=== PATIENT | female | born 1965 | race African-American/Black ===

== ENCOUNTER 2021-05-22 00:11 | Inpatient (IN) | payer OTHER, SELFPAY ==
[~2021-05-22] VITALS: Ht 162.6 cm; Wt 140.6 kg
[2021-05-22 00:11] VITALS: BP_SYST 92
[2021-05-22] MEDS ORDERED: DEXAMETHASONE SOD PHOSPHATE 4 MG/ML VIAL IVP ONE (02:00)
[2021-05-22] MEDS ORDERED: cefTRIAXone 1 GM IVPB PREMIX 50 ML IV ONE (02:00)
[2021-05-22] MEDS ORDERED: AZITHROMYCIN 250 MG TABLET PO ONE (02:00)
[2021-05-22 02:23] LABS: BASOPHILS # (AUTO) 0.1 K/uL (0.0-0.2); BASOPHILS % (AUTO) 0.8 % (0.0-2.0); EOSINOPHILS # (AUTO) 0.7 K/uL (0.0-0.4); EOSINOPHILS % (AUTO) 4.9 % (0.0-4.0); HEMATOCRIT 34.7 % (36-48); HEMOGLOBIN 11.5 g/dL (12.0-16.0); LYMPHOCYTES # (AUTO) 1.2 K/uL (1.0-5.5); LYMPHOCYTES % (AUTO) 8.3 % (20.5-51.5); MEAN CORPUSCULAR HEMOGLOBIN 31 pg (27-31); MEAN CORPUSCULAR HGB CONC 33 % (32-36); MEAN CORPUSCULAR VOLUME 94 fL (79.0-98.0); MONOCYTES # (AUTO) 2.3 K/uL (0.0-1.0); MONOCYTES % (AUTO) 15.6 % (1.7-9.3); NEUTROPHILS # (AUTO) 10.3 K/uL (1.8-7.7); NEUTROPHILS % (AUTO) 70.4 % (40.0-70.0); PLATELET COUNT (AUTO) 591 K/uL (130-430); RED BLOOD CELL COUNT(AUTO) 3.69 MIL/uL (4.2-6.2); RED CELL DISTRIBUTION WIDTH 14.8 % (9.0-15.0); WHITE BLOOD COUNT (AUTO) 14.7 K/uL (4.8-10.8)
[2021-05-22 02:28] LABS: CALCIUM 9.2 mg/dL (8.4-11.0); CREATININE 1.64 mg/dL (0.55-1.30); POTASSIUM 3.2 mmol/L (3.5-5.1)
[2021-05-22 02:36] LABS: ALBUMIN 2.4 g/dL (3.4-4.8); TOTAL BILIRUBIN 1.1 mg/dL (0.0-1.0)
[2021-05-22 02:53] LABS: PROTHROMBIN TIME 10.9 SECS (9.5-12.5)
--- NOTE | 2021-05-22 03:27 | NUR ---
Patient to ER bed 7 to gown for evaluation. Side rails up. Report given to Carlos A.
[2021-05-22] MEDS ORDERED: NACL 0.9% 1,000 ML IV ONE (03:45)
[2021-05-22] MEDS ORDERED: NOREPINEPHRINE BITARTRATE 4 MG in NS 246 ML IV ONE (03:45)
--- NOTE | 2021-05-22 03:50 | NUR ---
Pt with SpO2 83% on 2L/NC, pt placed on 6L/NC with improvment to 93%.
--- NOTE | 2021-05-22 04:00 | NUR ---
Pt BIB BLS c/o sob, cough, and congestion X 4 days. Patient covid + 05/07/21 asymptomatic until today.
--- NOTE | 2021-05-22 04:15 | NUR ---
Dr. Hawley at bedside for MSE.
[2021-05-22 04:44] LABS: BILIRUBIN,URINE 1+ (NEGATIVE); BLOOD, URINE NEGATIVE (NEGATIVE); CLARITY/URINE CLEAR (CLEAR); COLOR,URINE YELLOW (YELLOW); GLUCOSE,URINE TRACE (NEGATIVE); KETONES,URINE TRACE (NEGATIVE); LEUKOCYTE ESTERASE ,URINE NEGATIVE (NEGATIVE); NITRITE, URINE NEGATIVE (NEGATIVE); PH,URINE 5.5 (5.0-8.0); PROTEIN URINE NEGATIVE (NEGATIVE)
[2021-05-22] MEDS ORDERED: ENOXAPARIN SODIUM 40 MG/0.4 ML SYRINGE SUBCUT ONE (05:15)
[2021-05-22] MEDS ORDERED: ENOXAPARIN SODIUM 100 MG/ML SYRINGE SUBCUT ONE (05:15)
--- NOTE | 2021-05-22 05:20 | NUR ---
Patient resting quietly. No acute distress noted.
--- NOTE | 2021-05-22 06:00 | NUR ---
Patient will be admitted to care of DR. KEY. Admitted to ICU. Belongings list completed. Complete and up to date summary report printed. SBAR report to be given at bedside with opportunity for questions.
--- NOTE | 2021-05-22 06:20 | NUR ---
Patient's code status is FULL CODE paperwork completed and placed in chart.
--- NOTE | 2021-05-22 06:50 | NUR ---
Pt using BSC. SpO2 90% 6L/NC. Placed on simple mask.
--- NOTE | 2021-05-22 07:08 | NUR ---
Report given to La LANCE
--- NOTE | 2021-05-22 07:10 | NUR ---
REPORT RECEIVED FROM JANES LANCE. PT ARRIVED FROM HOME VIA ACLS W/ C/O INCREASING SOB. PT'S O2 SAT WAS 83% ON RA. PT IS CURRENTLY ON A SIMPLE FACE MASK, 8L, CURRENT O2 SAT IS 95%. PT IS AAOX4. VSS AT THE MOMENT
[2021-05-22] MEDS ORDERED: BENZ-16 PO (07:54)
[2021-05-22] MEDS ORDERED: COLC0.6T67 PO (07:54)
[2021-05-22] MEDS ORDERED: PRED10TA PO (07:54)
--- NOTE | 2021-05-22 07:54 | NUR ---
Medication reconciliation completed with information provided by PT. Any prior medication reconciliation on file was reviewed and corrected.
--- NOTE | 2021-05-22 08:08 | NUR ---
PCR COVID AND MRSA COLLECTED AND SENT TO THE LAB
[2021-05-22] MEDS ORDERED: LOPERAMIDE HCL 2 MG CAPSULE PO PRN (10:45)
[2021-05-22] MEDS ORDERED: POTASSIUM CHLORIDE 40 MEQ in NS 250 ML IV ONE (10:45)
[2021-05-22] MEDS ORDERED: KCL 20 mEq in 100 mL (PREMIX) 200 ML IV ONE (10:58)
--- NOTE | 2021-05-22 12:00 | NUR ---
k-rider currently infusing per md order
--- NOTE | 2021-05-22 17:00 | NUR ---
Pt transfered to hospital bed
--- NOTE | 2021-05-22 17:17 | NUR ---
Called dietary to request dinner tray for patient
[2021-05-22] MEDS ORDERED: D5/0.45 NS 1,000 ML IV SCH (17:45)
[2021-05-22] MEDS ORDERED: LORazepam 2 MG/ML VIAL IVP PRN (17:45)
[2021-05-22] MEDS ORDERED: ONDANSETRON HCL 4 MG/2 ML VIAL IVP PRN (17:45)
[2021-05-22] MEDS ORDERED: *LOVENOX 1MG/KG Q24H/PHARMACY XX ONE (17:45)
--- NOTE | 2021-05-22 18:55 | NUR ---
Dr. Davis at the bedside
[2021-05-22 18:59] VITALS: BP_SYST 114
[2021-05-22] MEDS: ALBUTEROL SULFATE 0.083% 2.5 MG/3 ML VIAL.NEB INH SCH ×2 (19:00→23:00)
[2021-05-22] MEDS: IPRATROPIUM BROM 0.5 MG/2.5 ML VIAL.NEB (ATROVENT) INH SCH ×2 (19:00→23:00)
--- NOTE | 2021-05-22 19:00 | NUR ---
current accu check is 264, covered w/ 4 units of regular insulin
[2021-05-22] MEDS: DEXAMETHASONE SOD PHOSPHATE 10 MG/ML VIAL IVP SCH (19:05)
[2021-05-22] MEDS: INSULIN REGULAR, HUMAN 100 UNITS/ML, 10 ML VIAL (humuLIN R) SUBCUT PRN (19:07)
[2021-05-22] MEDS ORDERED: INSULIN REGULAR, HUMAN 10 UNITS/0.1 ML INJ ONE (19:12)
[2021-05-22] MEDS ORDERED: *LOVENOX 1MG/KG Q12H/PHARMACY XX ONE (19:15)
--- NOTE | 2021-05-22 19:28 | NUR ---
report given to Chula LANCE. Pt is currently awake and resting in bed
--- NOTE | 2021-05-22 23:00 | NUR ---
Patient resting quietly. No acute distress noted. Vital signs within normal range.
[2021-05-23] MEDS ORDERED: CEFEPIME 1 GM/VIAL (MAXIPIME) ONE ×2 (01:39→09:42)
[2021-05-23] MEDS: CEFEPIME 0.5 GM in D5W 50 ML IV SCH ×3 (01:46→20:26)
[2021-05-23] MEDS: INSULIN REGULAR, HUMAN 100 UNITS/ML, 10 ML VIAL (humuLIN R) SUBCUT PRN ×3 (01:47→17:57)
[2021-05-23] MEDS ORDERED: AZITHROMYCIN 500 MG/VIAL (ZITHROMAX) IV ONE (01:53)
--- NOTE | 2021-05-23 02:00 | NUR ---
Patient resting quietly. No acute distress noted. Vital signs within normal range.
[2021-05-23] MEDS: AZITHROMYCIN 500 MG in NS 250 ML IV SCH (02:09)
[2021-05-23] MEDS: IPRATROPIUM BROM 0.5 MG/2.5 ML VIAL.NEB (ATROVENT) INH SCH ×4 (03:00→15:00)
[2021-05-23] MEDS: ALBUTEROL SULFATE 0.083% 2.5 MG/3 ML VIAL.NEB INH SCH ×4 (03:00→15:00)
--- NOTE | 2021-05-23 04:00 | NUR ---
MEDICATION ADMINISTERED ORDERED.
[2021-05-23 06:27] LABS: BASOPHILS % (AUTO) 0.2 % (0.0-2.0); HEMATOCRIT 33.2 % (36-48); HEMOGLOBIN 11.3 g/dL (12.0-16.0); LYMPHOCYTES # (AUTO) 1.3 K/uL (1.0-5.5); LYMPHOCYTES % (AUTO) 7.2 % (20.5-51.5); MEAN CORPUSCULAR HEMOGLOBIN 32 pg (27-31); MEAN CORPUSCULAR HGB CONC 34 % (32-36); MEAN CORPUSCULAR VOLUME 93 fL (79.0-98.0); MONOCYTES # (AUTO) 1.3 K/uL (0.0-1.0); MONOCYTES % (AUTO) 7.6 % (1.7-9.3); PLATELET COUNT (AUTO) 533 K/uL (130-430); RED BLOOD CELL COUNT(AUTO) 3.57 MIL/uL (4.2-6.2); WHITE BLOOD COUNT (AUTO) 17.6 K/uL (4.8-10.8)
[2021-05-23 06:40] LABS: C-REACTIVE PROTEIN QUANT 28.4 mg/dL (0-0.5); CALCIUM 9.2 mg/dL (8.4-11.0); CREATININE 1.34 mg/dL (0.55-1.30); PHOSPHORUS 3.6 mg/dL (2.7-4.5); POTASSIUM 3.9 mmol/L (3.5-5.1)
[2021-05-23] MEDS ORDERED: ENOXAPARIN SODIUM 60 MG/0.6 ML SYRINGE ONE (06:44)
[2021-05-23] MEDS: ENOXAPARIN SODIUM 40 MG/0.4 ML SYRINGE SUBCUT SCH (06:59)
[2021-05-23] MEDS: ENOXAPARIN SODIUM 100 MG/ML SYRINGE SUBCUT SCH (06:59)
--- NOTE | 2021-05-23 07:13 | NUR ---
REPORT GIVEN TO NATALIO MUNOZ TO ASSUME CARE.
--- NOTE | 2021-05-23 07:17 | NUR ---
REPORT RECEIVED FROM NATALIO LEAL
--- NOTE | 2021-05-23 08:03 | NUR ---
PT PLACED ON 4LNC, O2 SAT 93-95%, TOLERATING WELL
--- NOTE | 2021-05-23 08:15 | NUR ---
PT 02 SAT 92% UP NC TO 6L, 02 SAT 94-95%, PT TOLERATING WELL
--- NOTE | 2021-05-23 08:50 | NUR ---
DR. VIERA ORDERS TO DOWNGRADE TO TELE
[2021-05-23] MEDS: D5NS 1,000 ML IV SCH ×3 (09:00→23:34)
--- NOTE | 2021-05-23 11:10 | NUR ---
PT SLEEPING IN BED, NO DISTRESS NOTED, V/S STABLE
[2021-05-23 12:18] LABS: ERYTHROCYTE SEDIMENTATION RATE 96 MM/HR (0-20)
--- NOTE | 2021-05-23 12:23 | NUR ---
ULTRASOUND AT THE BEDSIDE
--- NOTE | 2021-05-23 14:12 | NUR ---
PT SLEEPING IN BED, NO DISTRESS, V/S STABLE
--- NOTE | 2021-05-23 14:53 | NUR ---
Patient will be admitted to care of DR. KEY. Admitted to TELE unit. Will go to room 120A. Belongings list completed. Complete and up to date summary report printed. SBAR report to be given at bedside with opportunity for questions.
[2021-05-23 16:00] VITALS: BP_SYST 121
--- NOTE | 2021-05-23 16:00 | NUR ---
admission: pt received form e.r. under dr yohan kimbrough dx of sepsis, covid pna. pt educated on the use of call light , tv and bed controls.
--- NOTE | 2021-05-23 16:41 | NUR ---
CONSULTATION PAGED/CALLED Reason for Consultation: [] QUENTIN Person Who was Notified: [] DR KOVACS Consulting Physician: [] DR KOVACS Racing Mechanic Specialty: [] NEPHRO Ordering Physician: [] DR KEY
--- NOTE | 2021-05-23 16:45 | NUR ---
MAINSPRING STRIP INSPECTOR DR CEE IS AWARE OF THE CONSULT FOR [email or web address] PNA.
--- NOTE | 2021-05-23 16:45 | NUR ---
CONSULTATION PAGED/CALLED Reason for Consultation: [] COVID PNA Person Who was Notified: [] JULISA Consulting Physician: [] DR PIÑA -- DR MANJARREZ KENNEL ATTENDANT Maintenance And Repair Worker Specialty: [] ID Ordering Physician: [] DR KEY
[2021-05-23] MEDS: DEXAMETHASONE SOD PHOSPHATE 10 MG/ML VIAL IVP SCH (17:58)
--- NOTE | 2021-05-23 18:00 | NUR ---
PT AMBULATED TO BATHROOM, DESATED TO 87 % ON ROOM AIR, GOES BACK TO 96% ON 6LI PER NC. WILL CONT TO MONITOR.
[2021-05-23 20:00] VITALS: BP_SYST 106
--- NOTE | 2021-05-23 23:54 | NUR ---
Pagezena HOUSTON Pt BS is 427, 12 units Reg insulin administered per protocol and paged Dr. Tabby Gutierrez. Pt is also on D5NS @100. Awaiting callback.
[2021-05-24] VITALS: BP_SYST 109
[2021-05-24] MEDS: INSULIN REGULAR, HUMAN 100 UNITS/ML, 10 ML VIAL (humuLIN R) SUBCUT PRN ×4 (00:11→17:39)
--- NOTE | 2021-05-24 01:17 | NUR ---
called back Rec'd call from Dr. Tabby Gutierrez, informed of elevated BS 427 and order rec'd for 10 units Regular and to change IVF to NS @ 100. Will carry out.
--- NOTE | 2021-05-24 01:18 | NUR ---
HIGH ALERT NOTE: Called back Dr. Tabby Gutierrez at [phone] identified within the medical roster to verify physician authenticity. Regular insulin 10units.
[2021-05-24] MEDS ORDERED: INSULIN REGULAR, HUMAN 100 UNITS/ML, 10 ML VIAL SUBCUT ONE (02:00)
[2021-05-24] MEDS: AZITHROMYCIN 500 MG in NS 250 ML IV SCH (02:05)
[2021-05-24] MEDS: NACL 0.9% 1,000 ML IV SCH ×2 (02:10→17:44)
--- NOTE | 2021-05-24 03:10 | NUR ---
IV Restart IV got pulled out L. AC, catheter tip intact no bleeding noted. # 22 gauge angiocath placed to L. hand 22G. Good blood return. Pt tolerated well. IV abx administered.
[2021-05-24] MEDS: ENOXAPARIN SODIUM 40 MG/0.4 ML SYRINGE SUBCUT SCH (06:00)
[2021-05-24] MEDS: ENOXAPARIN SODIUM 100 MG/ML SYRINGE SUBCUT SCH (06:01)
--- NOTE | 2021-05-24 06:03 | NUR ---
Closing notes Pt asleep, easily awakens. No s/s distress noted. BS checked 212, 4 units Reg insulin given per protocol. Lovenox injection SQ given as scheduled. IVF infusing at ordered rate L. hand 22G clear and patent. Call light within reach. Bed low, locked, siderails up x2. Droplet isolation maintained pending Covid PCR. To endorse to AM nurse.
[2021-05-24] MEDS: ALBUTEROL SULFATE 0.083% 2.5 MG/3 ML VIAL.NEB INH SCH ×5 (07:00→23:00)
[2021-05-24] MEDS: IPRATROPIUM BROM 0.5 MG/2.5 ML VIAL.NEB (ATROVENT) INH SCH ×5 (07:00→23:00)
--- NOTE | 2021-05-24 07:40 | NUR ---
OPENING NOTES PATIENT AAOX 4. LUNGS BILATERALLY CLEAR. HAS OXYGEN OF 6 LITERS VIA NC. ABDOMEN SOFT AND NON DISTENDED. HAS IV ACCESS ON THE LEFT HAND #22. WITH NORMAL SALINE AT 100CC/HR INFUSING ON WELL. CALL LIGHTS WITHIN REACH. BED LOW POSITION, ALARME AND LOCKED.
[2021-05-24 08:06] VITALS: BP_SYST 114
[2021-05-24 08:06] LABS: BASOPHILS # (AUTO) 0.1 K/uL (0.0-0.2); BASOPHILS % (AUTO) 0.5 % (0.0-2.0); EOSINOPHILS % (AUTO) 0.3 % (0.0-4.0); HEMATOCRIT 31.7 % (36-48); HEMOGLOBIN 10.7 g/dL (12.0-16.0); LYMPHOCYTES % (AUTO) 6.4 % (20.5-51.5); MEAN CORPUSCULAR HEMOGLOBIN 31 pg (27-31); MEAN CORPUSCULAR HGB CONC 34 % (32-36); MEAN CORPUSCULAR VOLUME 93 fL (79.0-98.0); MONOCYTES # (AUTO) 1.5 K/uL (0.0-1.0); NEUTROPHILS # (AUTO) 12.5 K/uL (1.8-7.7); NEUTROPHILS % (AUTO) 82.8 % (40.0-70.0); PLATELET COUNT (AUTO) 472 K/uL (130-430); RED BLOOD CELL COUNT(AUTO) 3.42 MIL/uL (4.2-6.2); RED CELL DISTRIBUTION WIDTH 15.4 % (9.0-15.0); WHITE BLOOD COUNT (AUTO) 15.1 K/uL (4.8-10.8)
[2021-05-24 10:02] LABS: CALCIUM 9.5 mg/dL (8.4-11.0); CREATININE 1.11 mg/dL (0.55-1.30); PHOSPHORUS 3.8 mg/dL (2.7-4.5); POTASSIUM 3.8 mmol/L (3.5-5.1)
[2021-05-24] MEDS: CEFEPIME 0.5 GM in D5W 50 ML IV SCH ×2 (10:05→19:59)
[2021-05-24 10:35] LABS: C-REACTIVE PROTEIN QUANT 7.3 mg/dL (0-0.5)
[2021-05-24 12:05] VITALS: BP_SYST 103
[2021-05-24 14:22] LABS: ERYTHROCYTE SEDIMENTATION RATE 97 MM/HR (0-20)
[2021-05-24 16:13] VITALS: BP_SYST 125
[2021-05-24] MEDS: DEXAMETHASONE SOD PHOSPHATE 10 MG/ML VIAL IVP SCH (17:31)
--- NOTE | 2021-05-24 18:36 | NUR ---
CLOSING NOTES PATIENT ALERT AWAKE X 4. NO S/S OF SYMPTOMS OF DISTRESS NOTED. LATEST BS 189 MG/DL. COVERAGE GIVEN. WISH TO GO TO THE BATHROOM LATER. CALL LIGHTS WITHIN REACH. BED LOW POSITION, ALARMED AND LOCKED. ENDORSED TO INCOMING NURSE.
--- NOTE | 2021-05-24 18:44 | NUR ---
Dietitian Recommendations * Recommend [facility] high carb-75 gm, 100 gm protein diet * Double portions of protein and non-starchy vegetables TID * Consider zinc/VIT C/VIT D3 COVID supplement protocol LP, RD Please refer to Nutrition Assessment for details. Addendum: 05/24/21 at [address] Amended: Links added.
[2021-05-24 20:00] VITALS: BP_SYST 141
--- NOTE | 2021-05-24 22:40 | NUR ---
Rounds/CT consent Pt states she wants to speak with Pulmo doctor first before she signs consent.
[2021-05-25 00:36] VITALS: BP_SYST 136
--- NOTE | 2021-05-25 01:00 | NUR ---
Rounds/BS check Pt asleep, easily awakens, VSS. BS checked 312, 8 units Regular insulin administered per protocol. IVF/IV abx infusing at ordered rate L. hand clear and patent. Call light within reach. To monitor.
[2021-05-25] MEDS: AZITHROMYCIN 500 MG in NS 250 ML IV SCH (01:10)
[2021-05-25] MEDS: INSULIN REGULAR, HUMAN 100 UNITS/ML, 10 ML VIAL (humuLIN R) SUBCUT PRN ×5 (01:16→23:45)
[2021-05-25] MEDS: NACL 0.9% 1,000 ML IV SCH ×4 (01:20→20:38)
[2021-05-25] MEDS: ALBUTEROL SULFATE 0.083% 2.5 MG/3 ML VIAL.NEB INH SCH ×2 (03:00→07:00)
[2021-05-25] MEDS: IPRATROPIUM BROM 0.5 MG/2.5 ML VIAL.NEB (ATROVENT) INH SCH ×2 (03:00→07:00)
[2021-05-25] MEDS: ENOXAPARIN SODIUM 100 MG/ML SYRINGE SUBCUT SCH ×2 (06:15→20:35)
[2021-05-25] MEDS: ENOXAPARIN SODIUM 40 MG/0.4 ML SYRINGE SUBCUT SCH ×2 (06:15→20:34)
--- NOTE | 2021-05-25 06:19 | NUR ---
Closing notes Pt awake alert, no s/s distress noted. BS checked 213, 4 units Reg insulin given per protocol. Lovenox injection SQ given as scheduled. IVF infusing at ordered rate L. hand 22G clear and patent. Call light within reach. Bed low, locked, siderails up x2. Droplet isolation maintained pending Covid PCR. To endorse to AM nurse.
[2021-05-25 07:18] LABS: BASOPHILS % (AUTO) 0.3 % (0.0-2.0); EOSINOPHILS # (AUTO) 0.1 K/uL (0.0-0.4); EOSINOPHILS % (AUTO) 1.3 % (0.0-4.0); HEMATOCRIT 32.9 % (36-48); HEMOGLOBIN 11.1 g/dL (12.0-16.0); LYMPHOCYTES % (AUTO) 9.2 % (20.5-51.5); MEAN CORPUSCULAR HEMOGLOBIN 32 pg (27-31); MEAN CORPUSCULAR HGB CONC 34 % (32-36); MEAN CORPUSCULAR VOLUME 93 fL (79.0-98.0); MONOCYTES # (AUTO) 1.2 K/uL (0.0-1.0); MONOCYTES % (AUTO) 10.9 % (1.7-9.3); NEUTROPHILS # (AUTO) 8.6 K/uL (1.8-7.7); NEUTROPHILS % (AUTO) 78.3 % (40.0-70.0); PLATELET COUNT (AUTO) 439 K/uL (130-430); RED BLOOD CELL COUNT(AUTO) 3.53 MIL/uL (4.2-6.2); RED CELL DISTRIBUTION WIDTH 14.8 % (9.0-15.0)
--- NOTE | 2021-05-25 07:30 | NUR ---
patient in bed, no s/s of distress, tolerating care, a/ox4, bed in lowest locked position, call light within reach, iv in l hand intact patent, will continue to monitor.
[2021-05-25 08:16] LABS: ALBUMIN 2.4 g/dL (3.4-4.8); C-REACTIVE PROTEIN QUANT 4.5 mg/dL (0-0.5); CALCIUM 9.2 mg/dL (8.4-11.0); CREATININE 0.94 mg/dL (0.55-1.30); POTASSIUM 3.8 mmol/L (3.5-5.1); TOTAL BILIRUBIN 0.5 mg/dL (0.0-1.0)
[2021-05-25] MEDS: CEFEPIME 0.5 GM in D5W 50 ML IV SCH ×2 (08:32→20:33)
[2021-05-25 10:54] LABS: ERYTHROCYTE SEDIMENTATION RATE 91 MM/HR (0-20)
[2021-05-25 11:32] VITALS: BP_SYST 125
[2021-05-25] MEDS ORDERED: ALBUTEROL MDI INHALATION 8 GM INH INH PRN (12:45)
[2021-05-25] MEDS ORDERED: ALBUTEROL MDI INHALATION 8 GM INH INH SCH (13:00)
[2021-05-25] MEDS ORDERED: IOHEXOL 350 mgI/mL, 150 ML INFUS..BTL IV ONE (15:11)
[2021-05-25 15:32] VITALS: BP_SYST 125
[2021-05-25 17:06] VITALS: BP_SYST 125
--- NOTE | 2021-05-25 17:11 | NUR ---
RECEIVED REPORT THAT CT ANGIOGRAM OF THE CHEST WAS POSITIVE FOR PULMONARY EMBOLISM, CALLED DR Olimpia KEY AND NOTIFIED OF THE RESULTS, HE ORDERED LOVENOX PER PHARMACY DOSING.
[2021-05-25] MEDS: DEXAMETHASONE SOD PHOSPHATE 10 MG/ML VIAL IVP SCH (18:41)
--- NOTE | 2021-05-25 19:30 | NUR ---
patient in bed, no s/s of distress, tolerating care, a/ox4, bed in lowest locked position, call light within reach, iv in l hand and 20g left AC intact patent, endorsed to pulp mill team leader.
[2021-05-25 20:31] VITALS: BP_SYST 140
--- NOTE | 2021-05-25 20:35 | NUR ---
MED PASS PATIENT DUE MEDICATIONS GIVEN. VITAL SIGNS STABLE. NO C/O PAIN. TOLERATING 02 @6L NC. 02 SAT 96%.
[2021-05-25] MEDS ORDERED: *LOVENOX 1MG/KG Q12H/PHARMACY XX SCH (21:00)
[2021-05-25 23:45] VITALS: BP_SYST 119
--- NOTE | 2021-05-25 23:45 | NUR ---
BLOOD SUGAR ROUTINE FINGER STICK SUGAR 325. COVERED WITH 8 UNITS REGULAR INSULIN PER SLIDING SCALE ORDER. VITAL SIGNS STABLE.
[2021-05-26] MEDS: AZITHROMYCIN 500 MG in NS 250 ML IV SCH (02:14)
--- NOTE | 2021-05-26 02:14 | NUR ---
ATB PATIENT DUE ANTIBIOTIC INFUSING. IV LINE INTACT AND PATENT.
--- NOTE | 2021-05-26 04:00 | NUR ---
ROUNDS PATIENT RESTING IN BED. BREATHING UNLABORED. CALL LIGHT WITH IN REACH.
[2021-05-26] MEDS: INSULIN REGULAR, HUMAN 100 UNITS/ML, 10 ML VIAL (humuLIN R) SUBCUT PRN ×3 (06:00→23:40)
--- NOTE | 2021-05-26 06:34 | NUR ---
CLOSING NOTES NO CHANGE IN PATIENT CONDITION. PATIENT NEEDS ATTENDED. BED IN LOWEST LOCKED POSITION. CALL LIGHT WITH IN REACH.
[2021-05-26] MEDS: ALBUTEROL SULFATE 0.083% 2.5 MG/3 ML VIAL.NEB INH SCH ×4 (07:00→19:00)
--- NOTE | 2021-05-26 07:40 | NUR ---
Opening note Received report from night nurse. Patient is alert and oriented X4. on 2 L nasal cannula and tolerating well with no signs of shortness of breath noted. IV is patent, infusing fluids as ordered. Safety, contact and airborne precautions in place. Bed locked and in lowest position. Call light within reach. Will continue to monitor.
[2021-05-26 07:50] LABS: CALCIUM 8.6 mg/dL (8.4-11.0); CREATININE 0.85 mg/dL (0.55-1.30); POTASSIUM 4.1 mmol/L (3.5-5.1)
[2021-05-26 08:00] VITALS: BP_SYST 122
[2021-05-26 08:01] LABS: BASOPHILS % (AUTO) 0.4 % (0.0-2.0); EOSINOPHILS # (AUTO) 0.1 K/uL (0.0-0.4); EOSINOPHILS % (AUTO) 1.1 % (0.0-4.0); HEMATOCRIT 31.3 % (36-48); HEMOGLOBIN 10.5 g/dL (12.0-16.0); LYMPHOCYTES # (AUTO) 1.1 K/uL (1.0-5.5); LYMPHOCYTES % (AUTO) 9.4 % (20.5-51.5); MEAN CORPUSCULAR HEMOGLOBIN 31 pg (27-31); MEAN CORPUSCULAR HGB CONC 33 % (32-36); MEAN CORPUSCULAR VOLUME 93 fL (79.0-98.0); MONOCYTES # (AUTO) 1.1 K/uL (0.0-1.0); NEUTROPHILS # (AUTO) 9.8 K/uL (1.8-7.7); NEUTROPHILS % (AUTO) 80.1 % (40.0-70.0); PLATELET COUNT (AUTO) 391 K/uL (130-430); RED BLOOD CELL COUNT(AUTO) 3.37 MIL/uL (4.2-6.2); RED CELL DISTRIBUTION WIDTH 14.8 % (9.0-15.0); WHITE BLOOD COUNT (AUTO) 12.2 K/uL (4.8-10.8)
[2021-05-26] MEDS: CEFEPIME 0.5 GM in D5W 50 ML IV SCH ×2 (08:09→23:18)
[2021-05-26] MEDS: ENOXAPARIN SODIUM 100 MG/ML SYRINGE SUBCUT SCH ×2 (08:10→23:13)
[2021-05-26] MEDS: ENOXAPARIN SODIUM 40 MG/0.4 ML SYRINGE SUBCUT SCH ×2 (12:07→23:14)
[2021-05-26 12:11] VITALS: BP_SYST 110
--- NOTE | 2021-05-26 12:17 | NUR ---
RN note Patient resting in bed. RT titrated patient to room air. O2 sat at 91%. Blood sugar 152, 2 units of regular insulin given. Vitals are stable. Will monitor.
[2021-05-26 12:20] LABS: ERYTHROCYTE SEDIMENTATION RATE 90 MM/HR (0-20)
[2021-05-26] MEDS: NACL 0.9% 1,000 ML IV SCH ×2 (14:00→23:13)
[2021-05-26 16:06] VITALS: BP_SYST 127
[2021-05-26] MEDS: DEXAMETHASONE SOD PHOSPHATE 10 MG/ML VIAL IVP SCH (17:33)
--- NOTE | 2021-05-26 18:31 | NUR ---
Closing note Patient is resting in bed. on 2 L nasal cannula and tolerating well with no signs of shortness of breath noted. IV is patent, infusing fluids as ordered. Safety, contact and airborne precautions remain in place. Bed locked and in lowest position. Call light within reach. Will endorse to night nurse.
[2021-05-26 19:30] VITALS: BP_SYST 124
--- NOTE | 2021-05-26 19:30 | NUR ---
OPENING NOTE PATIENT IS AWAKE ALERT ORIENTED X4 NO SIGNS OF PAIN OR DISTRESS. BREATHING OXYGEN VIA N/C AT 2 LPM NO RESPIRATORY DISTRESS. IV SITE PATENT INTACT ON LAC AND LH. BED IS LOW AND CALL LIGHT IN REACH.
[2021-05-26 20:00] VITALS: BP_SYST 125
--- NOTE | 2021-05-27 | NUR ---
PATIENT IS AWAKE COMFORTABLE IN BED NO SIGNS OF PAIN OR DISTRESS. BED IS LOW AND CALL LIGHT IN REACH.
[2021-05-27] MEDS: AZITHROMYCIN 500 MG in NS 250 ML IV SCH (03:24)
--- NOTE | 2021-05-27 04:29 | NUR ---
PATIENT IS RESTING IN BED NO SIGNS OF ACUTE DISTRESS OR PAIN. BED LOW AND CALL LIGHT IN REACH.
[2021-05-27] MEDS: INSULIN REGULAR, HUMAN 100 UNITS/ML, 10 ML VIAL (humuLIN R) SUBCUT PRN ×3 (05:29→17:08)
--- NOTE | 2021-05-27 06:21 | NUR ---
CLOSING NOTE PATIENT IS RESTING WAKES UP TO TOUCH AND VOCAL STIMULI. ALERT ORIENTED X4. BREATHING OXYGEN 2 LPM BY N/C NO SIGNS OF RESPIRATORY DISTRESS OR PAIN. IV SITES PATENT INTACT IN LAC AND LH INFUSING IV FLUIDS. BED IS LOW AND CALL LIGHT IS WITHIN REACH. WILL ENDORSE TO NEXT NURSE PATIENT PENDING PCR TEST.
[2021-05-27 07:34] LABS: BASOPHILS # (AUTO) 0.1 K/uL (0.0-0.2); BASOPHILS % (AUTO) 0.4 % (0.0-2.0); EOSINOPHILS # (AUTO) 0.1 K/uL (0.0-0.4); EOSINOPHILS % (AUTO) 0.5 % (0.0-4.0); HEMATOCRIT 34.4 % (36-48); HEMOGLOBIN 11.4 g/dL (12.0-16.0); LYMPHOCYTES # (AUTO) 1.4 K/uL (1.0-5.5); LYMPHOCYTES % (AUTO) 9.1 % (20.5-51.5); MEAN CORPUSCULAR HEMOGLOBIN 31 pg (27-31); MEAN CORPUSCULAR HGB CONC 33 % (32-36); MEAN CORPUSCULAR VOLUME 93 fL (79.0-98.0); MONOCYTES # (AUTO) 1.3 K/uL (0.0-1.0); MONOCYTES % (AUTO) 8.9 % (1.7-9.3); NEUTROPHILS # (AUTO) 12.1 K/uL (1.8-7.7); NEUTROPHILS % (AUTO) 81.1 % (40.0-70.0); PLATELET COUNT (AUTO) 373 K/uL (130-430); RED BLOOD CELL COUNT(AUTO) 3.69 MIL/uL (4.2-6.2); WHITE BLOOD COUNT (AUTO) 14.9 K/uL (4.8-10.8)
--- NOTE | 2021-05-27 07:40 | NUR ---
Opening note Received report from night nurse. Patient is resting in bed, alert and oriented x4. On 2 L nasal cannula and tolerating well with no signs of shortness of breath noted. IV is patent, infusing fluids as ordered. Safety, contact, and droplet precautions in place. Bed locked and in lowest position. Call light within reach. Will continue to monitor.
[2021-05-27 08:00] VITALS: BP_SYST 133
[2021-05-27 08:50] LABS: ERYTHROCYTE SEDIMENTATION RATE 87 MM/HR (0-20)
[2021-05-27] MEDS: ENOXAPARIN SODIUM 40 MG/0.4 ML SYRINGE SUBCUT SCH ×2 (10:01→22:36)
[2021-05-27] MEDS: CEFEPIME 0.5 GM in D5W 50 ML IV SCH ×2 (10:01→22:31)
[2021-05-27] MEDS: ENOXAPARIN SODIUM 100 MG/ML SYRINGE SUBCUT SCH ×2 (10:01→22:37)
[2021-05-27] MEDS: NACL 0.9% 1,000 ML IV SCH ×2 (10:02→22:30)
[2021-05-27] MEDS: ALBUTEROL SULFATE 0.083% 2.5 MG/3 ML VIAL.NEB INH SCH ×3 (10:21→15:00)
--- NOTE | 2021-05-27 10:43 | NUR ---
PCR negative Dr. Byrnes orders to DC covid isolation. Noted and carried out.
[2021-05-27 11:02] LABS: POTASSIUM 3.8 mmol/L (3.5-5.1)
[2021-05-27 11:03] LABS: CREATININE 0.98 mg/dL (0.55-1.30); PHOSPHORUS 3.4 mg/dL (2.7-4.5)
[2021-05-27 12:00] VITALS: BP_SYST 130
[2021-05-27] MEDS ORDERED: BENZ-16 PO (13:39)
[2021-05-27] MEDS ORDERED: DOXY100T2 PO (13:39)
[2021-05-27] MEDS ORDERED: APIX5TAB PO (13:39)
[2021-05-27] MEDS ORDERED: DEC4 PO (13:39)
[2021-05-27] MEDS ORDERED: COLC0.6T67 PO (13:39)
--- NOTE | 2021-05-27 13:58 | NUR ---
O2 Patient's pulse ox at rest without oxygen is 94%. Ambulated with patient and pulse ox dropped to 84-86% without oxygen. Back in bed, pulse ox 94% with 2 L oxygen via nasal cannula at rest.
--- NOTE | 2021-05-27 15:13 | NUR ---
Request fro Home Health and Home O2 faxed to [place] phone [phone]
[2021-05-27 16:00] VITALS: BP_SYST 135
[2021-05-27] MEDS: DEXAMETHASONE SOD PHOSPHATE 10 MG/ML VIAL IVP SCH (17:00)
--- NOTE | 2021-05-27 18:25 | NUR ---
Closing note Patient is resting in bed, on 2 L nasal cannula and tolerating well with no signs of shortness of breath noted. IV is patent, infusing fluids as ordered. Bed locked and in lowest position. Call light within reach. Safety precautions in place. All needs met throughout shift. Will endorse to night nurse.
--- NOTE | 2021-05-27 19:30 | NUR ---
OPENING NOTE PATIENT IS AWAKE ALERT ORIENTED X4. NO SIGNS OF RESPIRATORY DISTRESS OR PAIN. IV SITE PATENT AND INTACT. BED IS LOW AND CALL LIGHTS IN REACH.
[2021-05-27 20:00] VITALS: BP_SYST 144
--- NOTE | 2021-05-28 | NUR ---
PATIENTS ASLEEP COMFORTABLE NO SIGNS OF PAIN OR DISTRESS. BEDS LOW AND CALL LIGHTS IN REACH.
[2021-05-28] MEDS: INSULIN REGULAR, HUMAN 100 UNITS/ML, 10 ML VIAL (humuLIN R) SUBCUT PRN ×3 (00:30→11:40)
--- NOTE | 2021-05-28 04:00 | NUR ---
PATIENTS ASLEEP COMFORTABLE NO DISTRESS. BED LOW AND CALL LIGHTS IN REACH.
[2021-05-28] MEDS: NACL 0.9% 1,000 ML IV SCH ×2 (05:51→16:42)
[2021-05-28 06:21] LABS: BASOPHILS # (AUTO) 0.1 K/uL (0.0-0.2); BASOPHILS % (AUTO) 0.4 % (0.0-2.0); EOSINOPHILS % (AUTO) 0.2 % (0.0-4.0); HEMATOCRIT 30.4 % (36-48); HEMOGLOBIN 10.1 g/dL (12.0-16.0); LYMPHOCYTES % (AUTO) 6.7 % (20.5-51.5); MEAN CORPUSCULAR HEMOGLOBIN 31 pg (27-31); MEAN CORPUSCULAR HGB CONC 33 % (32-36); MEAN CORPUSCULAR VOLUME 93 fL (79.0-98.0); MONOCYTES # (AUTO) 1.2 K/uL (0.0-1.0); NEUTROPHILS % (AUTO) 84.7 % (40.0-70.0); PLATELET COUNT (AUTO) 320 K/uL (130-430); RED BLOOD CELL COUNT(AUTO) 3.26 MIL/uL (4.2-6.2); RED CELL DISTRIBUTION WIDTH 14.6 % (9.0-15.0); WHITE BLOOD COUNT (AUTO) 15.4 K/uL (4.8-10.8)
--- NOTE | 2021-05-28 06:44 | NUR ---
CLOSING NOTE PATIENT IS AWAKE ALERT X4 BREATHING ROOM AIR AT THIS TIME DOES NOT FEEL NEED FOR 2 LPM OXYGEN BY N/C SHE WAS ON EARLIER IN NIGHT. NO COMPLAINTS OF PAIN IN MY SHIFT. IV SITE PATENT AND INTACT RFA GAUGE 22. BED IS LOW AND CALL LIGHTS IN REACH. PATIENT PENDING DISCHARGE TO HOME WITH HOME HEALTH CARE WILL ENDORSE TO NEXT SHIFT TO CONSULT WITH CHIEF INFORMATICS OFFICER.
[2021-05-28 06:49] LABS: C-REACTIVE PROTEIN QUANT 7.3 mg/dL (0-0.5); CALCIUM 8.5 mg/dL (8.4-11.0); CREATININE 0.76 mg/dL (0.55-1.30); POTASSIUM 3.6 mmol/L (3.5-5.1)
[2021-05-28] MEDS: ALBUTEROL SULFATE 0.083% 2.5 MG/3 ML VIAL.NEB INH SCH ×4 (07:00→20:03)
[2021-05-28 07:30] VITALS: BP_SYST 146
[2021-05-28] MEDS: ENOXAPARIN SODIUM 100 MG/ML SYRINGE SUBCUT SCH ×2 (08:39→21:33)
[2021-05-28] MEDS: ENOXAPARIN SODIUM 40 MG/0.4 ML SYRINGE SUBCUT SCH ×2 (08:40→21:33)
[2021-05-28] MEDS: CEFEPIME 0.5 GM in D5W 50 ML IV SCH ×2 (09:29→21:32)
[2021-05-28 12:00] LABS: ERYTHROCYTE SEDIMENTATION RATE 93 MM/HR (0-20)
[2021-05-28 12:50] VITALS: BP_SYST 150
[2021-05-28 14:29] VITALS: BP_SYST 146
--- NOTE | 2021-05-28 16:02 | NUR ---
no notes re [facility] approval of [facility].
[2021-05-28 16:58] VITALS: BP_SYST 144
--- NOTE | 2021-05-28 17:07 | NUR ---
P.T. NOTES P.T. EVAL COMPLETED; REFER TO EVAL FOR DETAILS; ENDORSED TO NURSING; O2 SAT ROOM AIR=87% W/ EXERTION, 93% AT REST; N/C 2L=90% W/ EXERTION.
[2021-05-28] MEDS: DEXAMETHASONE SOD PHOSPHATE 10 MG/ML VIAL IVP SCH (17:20)
--- NOTE | 2021-05-28 17:25 | NUR ---
pulled up pt, encouraged to prone, pt stated she cannot stay on her belly. Addendum: 05/28/21 at 1800 by Wei Kothari RN wrong entry. this notes belongs to another pt.
--- NOTE | 2021-05-28 17:58 | NUR ---
Spoke to [facility]-they are processing request for Home Health/home O2
--- NOTE | 2021-05-28 19:34 | NUR ---
CLOSING NOTES. PT HAS BEEN STABLE THE WHOLE SHIFT, NO C/O PAIN, NO SOB. CONTINUED ON ROOM AIR. WALKED WITH P.T. PER P.T. PT DESATS WHEN WALKING WITH HER. WAITING FOR [facility] APPROVAL FOR HHN AND O2. ENDORSED TO NIGHT NURSE.
[2021-05-28 20:30] VITALS: BP_SYST 137
--- NOTE | 2021-05-28 21:15 | NUR ---
ASSIST Patient out of bed , PT has Bo ambulates FALL MEASURES IMPLEMENTED assist back to bed Respirations Regular also unlabored .
--- NOTE | 2021-05-29 00:15 | NUR ---
BSG BLOOD SUGAR GLUCOSE 329 mg dl Regular insulin EIGHT UNITS ORDERED patient alert / continue to monitor .
[2021-05-29 00:59] VITALS: BP_SYST 142
[2021-05-29] MEDS: INSULIN REGULAR, HUMAN 100 UNITS/ML, 10 ML VIAL (humuLIN R) SUBCUT PRN ×3 (01:03→11:44)
[2021-05-29] MEDS: NACL 0.9% 1,000 ML IV SCH ×2 (01:05→11:45)
--- NOTE | 2021-05-29 03:06 | NUR ---
LOVENOX SUB Q. as ordered no s/sx of ADVERSE Reaction patient skin dry warm no BLEEDING NOTED .
--- NOTE | 2021-05-29 05:33 | NUR ---
ASSIST Patient out of bed BRP ambulates with assist device cane , FALL RISK MEASURES in place monitor call sharma , procedures explained .
[2021-05-29 06:56] LABS: BASOPHILS % (AUTO) 0.4 % (0.0-2.0); HEMATOCRIT 30.2 % (36-48); LYMPHOCYTES % (AUTO) 7.1 % (20.5-51.5); MEAN CORPUSCULAR HEMOGLOBIN 31 pg (27-31); MEAN CORPUSCULAR HGB CONC 33 % (32-36); MEAN CORPUSCULAR VOLUME 92 fL (79.0-98.0); MONOCYTES % (AUTO) 7.4 % (1.7-9.3); NEUTROPHILS # (AUTO) 11.5 K/uL (1.8-7.7); NEUTROPHILS % (AUTO) 85.1 % (40.0-70.0); PLATELET COUNT (AUTO) 282 K/uL (130-430); RED BLOOD CELL COUNT(AUTO) 3.27 MIL/uL (4.2-6.2); RED CELL DISTRIBUTION WIDTH 14.8 % (9.0-15.0); WHITE BLOOD COUNT (AUTO) 13.6 K/uL (4.8-10.8)
[2021-05-29] MEDS: ALBUTEROL SULFATE 0.083% 2.5 MG/3 ML VIAL.NEB INH SCH ×3 (07:31→22:04)
[2021-05-29 08:11] VITALS: BP_SYST 131
[2021-05-29 08:12] LABS: ALBUMIN 2.4 g/dL (3.4-4.8); CALCIUM 8.9 mg/dL (8.4-11.0); CREATININE 0.87 mg/dL (0.55-1.30); TOTAL BILIRUBIN 0.5 mg/dL (0.0-1.0)
[2021-05-29] MEDS: ENOXAPARIN SODIUM 100 MG/ML SYRINGE SUBCUT SCH ×2 (08:25→20:29)
[2021-05-29] MEDS: ENOXAPARIN SODIUM 40 MG/0.4 ML SYRINGE SUBCUT SCH ×2 (08:26→20:29)
[2021-05-29 09:42] LABS: C-REACTIVE PROTEIN QUANT 5.5 mg/dL (0-0.5)
[2021-05-29 11:05] LABS: ERYTHROCYTE SEDIMENTATION RATE 92 MM/HR (0-20)
[2021-05-29 12:00] VITALS: BP_SYST 143
--- NOTE | 2021-05-29 12:45 | NUR ---
DISCHARGE PLANNING Called [facility] [place] planning line, ph [phone], &spoke with Katty escamilla. [facility] order for home health & home O2 were received 05/27. [facility] will assign a CM to work on the order. [place] CM will call once assigned.
[2021-05-29] MEDS ORDERED: NORMAL SALINE 5 ML DISP.SYRIN IVF SCH (14:00)
--- NOTE | 2021-05-29 14:02 | NUR ---
DISCHARGE PLANNING Received call back from Katty at [place], pt set up with [facility] for DME. States put a stat on DME/home O2 for [facility], hopefully will be delivered today. Called & spoke with Lizbeth at [facility], ph [phone], verified they will be following pt. Called & spoke with pt via cell ph, is agreeable with plan for home with home health & DME. Verified address/ph #'s correct on face sheet. Updated pt's nurse. [facility], ph [phone] [facility] for Home O2/DME: ph [phone], after hrs ph [phone]
[2021-05-29 15:27] VITALS: BP_SYST 137
[2021-05-29 15:30] VITALS: BP_SYST 137
--- NOTE | 2021-05-29 16:16 | NUR ---
Nutrition F/U RD reviewed pt's current EMR record including diet Hx, physician notes, nursing notes, pertinent labs/meds/procedures, care trends, and care activity. Admission Dx: Sepsis, respiratory failure, COVID, pneumonia PMH: PE, DM, HTN, and asthma per physician notes SARS-CoV-2 Ag (Rapid) Negative 05/22 & (PCR) Negative 05/22 Current Diet Order/Nutrition Support: CCHO high carb-75, PRO 100 gms x4 days Subjective Info: RD spoke w/ pt's primary RN who reported that pt has been eating OK and D/C planning is in place. He denied any N/V/C/D. Per EMR review, PO intake average of 67% x12 meals; pt is on 2 L O2 via NC; no BM noted since 05/25; pt has bilat leg 2+ non-pitting edmea; Vitaliy scale: 18, no PIs noted. Current diet is adequate/appropriate. Pertinent Medications: lovenox, decadron, SSI, imodium Pertinent Labs: WBC 13.6 H, BG 214 H, POC BG 178 H, CRP 5.5 H Ht: 5'4" Wt: 310#/141 kg (05/24) -- stable Body Mass Index: 53.21 kg/m2 %IBW: 256 [place]/Adjusted Body Weight: IBW: 120#/55 kg. Adj IBW (obesity): 168#/76 kg Recent Weight Change: Unable to verify Weight Status: Morbidly Obese Food Allergies: Yes - shellfish per EMR review Estimated Energy Expenditure (kcals/day) 6899-1076 kcal/day (30-35 kcal/kg Adj IBW d/t sepsis) Estimated Protein Required (g/day) 114-152 gm/day (1.5-2 gm/kg Adj IBW d/t sepsis) Estimated Fluid Required (l/day) 2.3-2.7 L/day (1 ml/kcal/day for maintenance) Problem/Etiology/Signs/Symptoms Increased nutritional needs related to metabolic demands as evidenced by estimated nutritional requirements for sepsis. *ongoing Malnutrition related to morbid obesity as evidenced by BMI: 53.2 kg/m2 and 256% of IBW. *ongoing Expected Outcomes/Goals - Monitor appetite and PO intakes w/ goal of pt meeting at least 80% of estimated nutritional needs, labs trending WNL, normal GI function, and skin integrity/wt maintenance Dietitian Recommendations * [facility]-75 gm, 100 gm protein diet * Double portions of protein and non-starchy vegetables TID Follow Up Mod Risk: F/U in 3-5 days
--- NOTE | 2021-05-29 16:22 | NUR ---
Dietitian Recommendations * [facility] carb-75 gm, 100 gm protein diet * Double portions of protein and non-starchy vegetables TID LP, RD Please refer to Nutrition F/U for details.
[2021-05-29] MEDS: DEXAMETHASONE SOD PHOSPHATE 10 MG/ML VIAL IVP SCH (17:45)
--- NOTE | 2021-05-29 19:41 | NUR ---
PT HAS BEEN WAITING FOR OXYGEN SUPPLY [facility]ORIDAL[facility], SPOKE WITH MARGARET Dyer/Nini TIPTON AND I WAS TOLD O2 WILL BE DELIVERED TO PT'S HOME AT 930 PM. PT WAS INFORMED, TOLD HER TO TELL HER SON AND TO WAIT UNTIL IT IS DELIVERED AND THEN HE HAS TO TAKE ONE OF THE TANKS HERE SO PT CAN USE IT GOING HOME. ENDORSED TO NIGHT NURSE.
--- NOTE | 2021-05-29 20:00 | NUR ---
initial notes: pt is sitting in bed, stable no pain, no distress, waiting for oxygen tank to be delivered before discharge, needs attended, call light in reach. will follow up.
[2021-05-29 20:11] VITALS: BP_SYST 142
--- NOTE | 2021-05-29 21:56 | NUR ---
D/C Patient Patient given medication reconciliation form and D/C instructions. Exit Care provided. Patient verbalized understanding. MD discussed with patient the results and treatment provided. Ambulatory with steady gait for discharge to home. Patient in stable condition, ID band removed. IV catheter removed, intact and dressing applied, no active bleeding. Patient educated on pain management. All belongings sent with patient.oxygen is already delivered.
== END 2021-05-29 21:56 | disposition home health service (06) | DRG 871 ==
LOC: SED 00:11 → SIC 06:04 → STU 05-23 14:25
PROVIDERS: ADMIT Preventive Medicine Preventive Medicine/Occupational Environmental Medicine; ATTEND Preventive Medicine Preventive Medicine/Occupational Environmental Medicine
DX: A41.9 Sepsis, unspecified organism (principal); J96.01 Acute respiratory failure with hypoxia; N17.0 Acute kidney failure with tubular necrosis; I26.99 Other pulmonary embolism without acute cor pulmonale; E87.1 Hypo-osmolality and hyponatremia; Z68.43 Body mass index [BMI] 50.0-59.9, adult; D64.9 Anemia, unspecified; D47.3 Essential (hemorrhagic) thrombocythemia; E87.6 Hypokalemia; E11.65 Type 2 diabetes mellitus with hyperglycemia; E88.09 Other disorders of plasma-protein metabolism, not elsewhere classified; E11.21 Type 2 diabetes mellitus with diabetic nephropathy; J45.909 Unspecified asthma, uncomplicated; E83.42 Hypomagnesemia; R53.81 Other malaise; E66.01 Morbid (severe) obesity due to excess calories; I12.9 Hypertensive chronic kidney disease with stage 1 through stage 4 chronic kidney disease, or unspecified chronic kidney disease; Z20.822 Contact with and (suspected) exposure to COVID-19; E11.22 Type 2 diabetes mellitus with diabetic chronic kidney disease; N18.9 Chronic kidney disease, unspecified; Z88.0 Allergy status to penicillin; Z91.013 Allergy to seafood; Z79.899 Other long term (current) drug therapy; Z86.711 Personal history of pulmonary embolism; Z79.01 Long term (current) use of anticoagulants
CPT/HCPCS: 36415; 36600; 71045; 71275; 76376; 76770; 80048; 80053; 81003; 82550; 82728; 82803-TC; 82962; 83605; 83615; 83735; 83880; 84100; 84484; 85025; 85379; 85384; 85610-TC; 85651-TC; 85730-TC; 86140; 87040-TC; 87081; 87086; 93005; 93970; 94640; 94760; 96365; 96372; 96375; 97163-GP; 99291; G0378; J0456; J0692; J0696; J1100; J1650; J1815; J3480; J7050; J7060; J7613; Q0144; Q9967; U0003

== ENCOUNTER 2023-10-21 17:27 | Emergency (ER) | payer OTHER ==
[~2023-10-21] VITALS: Ht 160 cm; Wt 158.3 kg
[~2023-10-21 17:27] MED LIST: APIX5TAB PO; BENZ-16 PO; COLC0.6T67 PO; DEC4 PO; DOXY100T2 PO
[2023-10-21 17:50] VITALS: BP_SYST 188; PULSE 98; RESP 18; TEMP 97.8; O2SAT 93
[2023-10-21] MEDS ORDERED: NITROGLYCERIN 0.4 MG TAB.SUBL SL ONE (18:00)
[2023-10-21] MEDS ORDERED: IPRATROPIUM/ALBUTEROL SULFATE 3 ML AMPUL.NEB (DUONEB) INH ONE (18:00)
[2023-10-21] MEDS ORDERED: cloNIDine HCL 0.1 MG TABLET PO ONE (18:00)
[2023-10-21 19:16] LABS: INR 1.2 (0.8-1.2); PROTHROMBIN TIME 11.9 SECS (9.5-12.5)
[2023-10-21 19:17] LABS: BASOPHILS # (AUTO) 0.1 K/uL (0.0-0.2); BASOPHILS % (AUTO) 0.9 % (0.0-2.0); EOSINOPHILS # (AUTO) 0.4 K/uL (0.0-0.4); EOSINOPHILS % (AUTO) 3.5 % (0.0-4.0); HEMOGLOBIN 12.7 g/dL (12.0-16.0); LYMPHOCYTES # (AUTO) 1.7 K/uL (1.0-5.5); LYMPHOCYTES % (AUTO) 15.9 % (20.5-51.5); MEAN CORPUSCULAR HEMOGLOBIN 32 pg (27-31); MEAN CORPUSCULAR HGB CONC 34 % (32-36); MEAN CORPUSCULAR VOLUME 94 fL (79.0-98.0); MONOCYTES # (AUTO) 0.9 K/uL (0.0-1.0); MONOCYTES % (AUTO) 8.6 % (1.7-9.3); NEUTROPHILS # (AUTO) 7.8 K/uL (1.8-7.7); NEUTROPHILS % (AUTO) 71.1 % (40.0-70.0); PLATELET COUNT (AUTO) 336 K/uL (130-430); RED BLOOD CELL COUNT(AUTO) 3.92 MIL/uL (4.2-6.2); RED CELL DISTRIBUTION WIDTH 15.3 % (9.0-15.0)
[2023-10-21 19:26] LABS: ALANINE AMINOTRANSFERASE 24 U/L (12-78); ANION GAP 8 (5-15); ASPARTATE AMINOTRANSFERASE 26 U/L (10-37); CALCIUM 8.6 mg/dL (8.4-11.0); CARBON DIOXIDE 27 mmol/L (23-29); CHLORIDE 99 mmol/L (98-107); CREATININE 0.73 mg/dL (0.55-1.30); GFR AFRICAN AMERICAN 105 mL/min (>90); GFR NON AFRICAN-AMERICAN 87 mL/min (>90); GLUCOSE 206 mg/dL (74-106); POTASSIUM 3.2 mmol/L (3.5-5.1); SODIUM SERUM 134 mmol/L (136-145); TOTAL BILIRUBIN 0.8 mg/dL (0.0-1.0); TOTAL PROTEIN, SERUM 7.6 g/dL (6.4-8.3); UREA NITROGEN, BLOOD 9 mg/dL (8-21)
[2023-10-21 19:53] LABS: BILIRUBIN,DIRECT 0.3 mg/dL (0.0-0.3); CREATINE KINASE, TOTAL 70 U/L (26-192)
[2023-10-21 20:07] LABS: COVID19 ANTIGEN SOFIA FIA NEGATIVE (NEGATIVE)
[2023-10-21 20:09] LABS: INFLUENZA TYPE A Negative (NEGATIVE); INFLUENZA TYPE B NEGATIVE (NEGATIVE)
[2023-10-21] MEDS ORDERED: PRED20TA PO (21:28)
[2023-10-21] MEDS ORDERED: ALBMDI INH (21:28)
[2023-10-21 21:38] VITALS: BP_SYST 127; PULSE 94; RESP 22; TEMP 98.8; O2SAT 94
== END 2023-10-21 21:38 | disposition home or self-care (01) ==
LOC: SED 17:27
DX: J45.901 Unspecified asthma with (acute) exacerbation (principal); R06.02 Shortness of breath; I10 Essential (primary) hypertension; Z88.0 Allergy status to penicillin; Z91.013 Allergy to seafood; Z79.899 Other long term (current) drug therapy; Z20.822 Contact with and (suspected) exposure to COVID-19
CPT/HCPCS: 36415; 71045; 80048; 80076; 82550; 83605; 83880; 84484; 85025; 85610-TC; 85730-TC; 93005; 94640; 94760; 99285